=== PATIENT | female | born 2000 | race Two or more races ===

== ENCOUNTER 2020-04-30 13:00 | Outpatient (CLI) | payer OTHER ==
[~2020-04-30 13:00] MED LIST: ADVIL MIGRAINE200 MG; PEPTO-BISM525 MG/15
== END 2020-04-30 18:48 | disposition home or self-care (01) ==
LOC: OBS/DEL 13:00
PROVIDERS: ATTEND Obstetrics & Gynecology
DX: O26.843 Uterine size-date discrepancy, third trimester (principal); O60.03 Preterm labor without delivery, third trimester; O23.43 Unspecified infection of urinary tract in pregnancy, third trimester; B96.89 Other specified bacterial agents as the cause of diseases classified elsewhere

== ENCOUNTER 2020-06-21 15:04 | Inpatient (IN) | payer OTHER ==
[~2020-06-21] VITALS: Ht 157.5 cm; Wt 3.2 kg
[2020-06-21] MEDS ORDERED: VALACYCLOVIR1000 MG PO (15:32)
[2020-06-21] MEDS ORDERED: PRENATAL TABLE1 EAC1 PO (15:33)
== END 2020-06-24 10:44 | DRG 788 ==
LOC: OBS/DEL 15:04 → LDR 19:03 → OB/GYN 22:29
PROVIDERS: Obstetrics & Gynecology; ADMIT Obstetrics & Gynecology; ATTEND Obstetrics & Gynecology
PROC: 4A0HXFZ Measurement of Products of Conception, Cardiac Rhythm, External Approach (ICD-10-PCS; 2020-06-21)
PROC: 10D00Z1 Extraction of Products of Conception, Low, Open Approach (ICD-10-PCS; principal; 2020-06-21 19:00)
DX: O82 Encounter for cesarean delivery without indication (principal); Z3A.38 38 weeks gestation of pregnancy; Z37.0 Single live birth

== ENCOUNTER 2020-08-01 18:47 | Emergency (ER) | payer OTHER ==
[~2020-08-01] VITALS: Ht 157.5 cm; Wt 55.8 kg
[~2020-08-01 18:47] MED LIST changes: +PRENATAL TABLE1 EAC1 PO; +VALACYCLOVIR1000 MG PO
[2020-08-02] MEDS ORDERED: KETO10TA2 PO (12:08)
== END 2020-08-02 12:28 | disposition home or self-care (01) ==
LOC: ER 18:47
DX: K80.20 Calculus of gallbladder without cholecystitis without obstruction (principal)

== ENCOUNTER 2020-09-09 06:06 | Day surgery (SDC) | payer OTHER ==
[~2020-09-09 06:06] MED LIST changes: +KETO10TA2 PO
== END 2020-09-09 12:26 | disposition home or self-care (01) ==
LOC: CIR.AMB 06:06 → SURH 09:00 → CIR.AMB 09:00 → EDSTATUS 09:00 → CIR.AMB 12:26
PROVIDERS: ATTEND Surgery
DX: K80.10 Calculus of gallbladder with chronic cholecystitis without obstruction (principal); Z20.828 Contact with and (suspected) exposure to other viral communicable diseases

== ENCOUNTER 2020-12-31 12:36 | Emergency (ER) | payer OTHER ==
[~2020-12-31] VITALS: Ht 157.5 cm; Wt 54.4 kg
== END 2020-12-31 16:22 | disposition home or self-care (01) ==
LOC: ER 12:36
DX: R10.12 Left upper quadrant pain (principal)

== ENCOUNTER 2021-05-27 14:34 | Emergency (ER) | payer OTHER ==
[~2021-05-27] VITALS: Ht 157.5 cm; Wt 54.9 kg
== END 2021-05-27 19:59 | disposition home or self-care (01) ==
LOC: ER 14:34
DX: E86.0 Dehydration (principal); Z03.818 Encounter for observation for suspected exposure to other biological agents ruled out

== ENCOUNTER 2022-10-04 11:04 | Emergency (ER) | payer OTHER ==
[~2022-10-04] VITALS: Ht 157.5 cm; Wt 52.2 kg
== END 2022-10-04 17:32 | disposition home or self-care (01) ==
LOC: ER 11:04
DX: N39.0 Urinary tract infection, site not specified (principal)

== ENCOUNTER 2022-12-01 09:21 | Emergency (ER) | payer OTHER ==
[~2022-12-01] VITALS: Ht 157.5 cm; Wt 52.2 kg
== END 2022-12-01 12:58 | disposition home or self-care (01) ==
LOC: ER 09:21
DX: N83.202 Unspecified ovarian cyst, left side (principal); R10.2 Pelvic and perineal pain; N93.9 Abnormal uterine and vaginal bleeding, unspecified

== ENCOUNTER 2023-03-04 09:00 | Emergency (ER) | payer OTHER ==
[~2023-03-04] VITALS: Ht 157.5 cm; Wt 51.7 kg
[2023-03-04] MEDS ORDERED: MUCINEX DM ER1 EAC1 PO (12:37)
== END 2023-03-04 12:44 | disposition home or self-care (01) ==
LOC: ER 09:00
DX: B34.9 Viral infection, unspecified (principal); Z20.822 Contact with and (suspected) exposure to COVID-19

== ENCOUNTER 2025-07-14 13:19 | Outpatient (CLI) | payer OTHER ==
[2025-07-14 12:34] VITALS: BP 98/61
[~2025-07-14 13:19] MED LIST changes: +MUCINEX DM ER1 EAC1 PO
[2025-07-14] MEDS ORDERED: PRENATABS RX T1 EACH PO (13:22)
[2025-07-14 15:13] VITALS: BP 101/65
[2025-07-14 15:27] VITALS: BP 101/65
== END 2025-07-14 16:10 | disposition home or self-care (01) ==
LOC: OBS/DEL 13:19
PROVIDERS: ATTEND Obstetrics & Gynecology
DX: O26.852 Spotting complicating pregnancy, second trimester (principal); Z3A.24 24 weeks gestation of pregnancy

== ENCOUNTER → 2025-09-22 | Emergency (ER) | payer OTHER ==
[~2025-09-22] VITALS: Ht 157.5 cm; Wt 61.2 kg
[~2025-09-22] MED LIST changes: +PRENATABS RX T1 EACH PO
[2025-09-22 13:08] LABS: BASO % 0.3 % (0.1-1.2); EOS # 0.13 (0.04-0.54); EOS % 1.2 % (0.7-7.0); LYMPH # 1.40 (1.18-3.74); LYMPH % 13.0 % (19.3-53.1); MEAN PLATELET VOLUME 11.70 fl (9.4-12.4); MONO # 0.79 (0.24-0.82); MONO % 7.3 % (4.7-12.5); NEUT # 8.34 (1.56-6.13); NEUT % 77.4 % (34.0-71.1); RED CELL DISTRIBUTION WIDTH 12.2 % (11.6-14.4)
[2025-09-22 13:51] LABS: URINE APPEARANCE Clear; URINE BILIRRUBIN Negative (NEGATIVE); URINE BLOOD Negative; URINE COLOR Yellow; URINE GLUCOSE Negative (NEGATIVE); URINE KETONE Trace (NEGATIVE); URINE LEUKOCYTE Moderate; URINE NITRATE Negative; URINE PROTEIN Trace (NEGATIVE); URINE UROBILINOGEN 0.2 E.U./dl
[2025-09-22 13:55] LABS: URINE EPITHELIAL CELLS 64.8 uL (0.0-38.8); URINE RBC 3.9 uL (0.0-20.8); URINE WBC 364.7 uL (0.0-23.2)
[2025-09-22 14:05] LABS: ALT/SGPT 22.0 U/L (12-78); AST/SGOT 23.0 U/L (15-37); BILIRUBIN TOTAL 0.65 mg/dL (0.3-1.2); BUN CREA RATIO 11.0 (7.0-25.0); CREATININE SERUM 0.57 mg/dL (0.55-1.02); GFR 128.21; GLOBULINA 3.7 G/DL (2.4-3.5); GLUCOSE FASTING 87.0 mg/dL (65-100); OSMOLALITY SERUM 276.0 MOSM/KG (275-295)
[2025-09-22 14:12] LABS: URINE CAST 0.56 uL (0.0-1.40)
== END | disposition home or self-care (01) ==
LOC: ER 11:08
PROVIDERS: General Practice
DX: O26.893 Other specified pregnancy related conditions, third trimester (principal); Z3A.34 34 weeks gestation of pregnancy; R55 Syncope and collapse